=== PATIENT | male | born 1955 | race Caucasian/White ===

== ENCOUNTER → 2024-12-31 09:20 | Outpatient (REF) | payer MEDICARE, OTHER, SELFPAY | LOC: DHSLP 09:20 | PROVIDERS: FAMILY PHYSICIAN Internal Medicine | DX: G47.33 Obstructive sleep apnea (adult) (pediatric) (principal); G47.61 Periodic limb movement disorder; G47.00 Insomnia, unspecified | CPT/HCPCS: 95810 ==